=== PATIENT | female | born 1930 | race Caucasian/White ===

== ENCOUNTER 2018-04-30 06:39 | Day surgery (SDC) | payer MEDICARE, BC ==
[2018-04-30] MEDS ORDERED: Dextrose 5%-Lactated Ringers 1,000 ML IV SCH (07:15)
[2018-04-30] MEDS ORDERED: Propofol 200 MG/20 ML SDV ONE (07:17)
[2018-04-30] MEDS ORDERED: Midazolam 1 MG/ML 2 ML SDV ONE (07:17)
[2018-04-30] MEDS ORDERED: fentaNYL 100 MCG/2 ML SDV ONE (07:17)
[2018-04-30] MEDS ORDERED: Atropine 0.4 MG/ML SDV ONE (11:05)
[2018-04-30 12:58] VITALS: BP 138/83
--- NOTE | 2018-05-07 12:32 | OR ---
DATE OF PROCEDURE: 04/30/2018 PREOPERATIVE DIAGNOSIS: Iron-deficiency anemia. POSTOPERATIVE DIAGNOSIS: Iron-deficiency anemia associated with normal upper and lower GI endoscopies. OPERATIVE PROCEDURE: 1. Esophagogastroduodenoscopy with biopsies of antrum for CLOtest. 2. Flexible colonoscopy. ANESTHESIA: IV sedation. INDICATION FOR PROCEDURE: This is an 87-year-old presenting with an iron-deficiency anemia pattern. The labs were rechecked today. She did have some persistently low hemoglobin of 9.6 as well as low MCV, MCH, and MCHC. Of note, her ferritin level today was 37, vitamin B12 was 1221, and folate was greater than 20. Plan is to proceed with an upper and lower endoscopy with biopsies and/or polypectomy as indicated. Potential risks including bleeding and perforation were discussed, and the patient wishes to proceed. DETAILS OF PROCEDURE: The patient was taken to the operating room and placed in a left lateral decubitus position. IV sedation was administered, after which the upper GI endoscope was passed orally through the length of the esophagus into the stomach with retroflexion view of the fundus and thereafter through the pyloric channel and into the junction of the third and fourth portions of the duodenum. Findings were overall entirely normal. There was no evidence of inflammation of hypopharynx, larynx, upper esophageal sphincter, or esophageal body. At the EG junction, no significant hiatal hernia or inflammation was present. Likewise, within the stomach, there were no significant areas of inflammation. The pyloric channel and the visualized portion of the duodenum were unremarkable. There was no evidence of any tumor effect at the level of the ampulla of Vater. Biopsies were then obtained from the antrum to establish the patient's H. pylori status and findings of CLOtest. Minimal bleeding from the biopsy site was seen and the gastroscope then removed. Attention was taken to the colonoscopy. Initial digital rectal exam was performed and was unremarkable. The colonoscope was then passed into the rectum with retroflexion revealing some uncomplicated hemorrhoidal columns. The scope was eventually passed to the level of the cecum. The prep was fairly good. There was some liquid stool present, but no significant pathology would likely have been missed. Overall, the colonoscopic examination was entirely normal. No blood or bleeding or areas of diverticular disease. No polyps or signs of neoplasia and no areas of colitis. The scope was then withdrawn, the above findings reconfirmed, and the procedure then concluded. The patient was taken to the recovery room in satisfactory condition. The patient will be following up with Dr. Diane in the clinic over the next couple of weeks. If there is still a suspicion of GI tract blood loss, one might consider a capsule enteroscopy via [facility]. Casper Spencer MD /[id number]
== END 2018-04-30 13:35 | disposition home or self-care (01) ==
LOC: JP.SDS 06:39
PROVIDERS: ATTEND Surgery
DX: D50.9 Iron deficiency anemia, unspecified (principal); K64.9 Unspecified hemorrhoids
CPT/HCPCS: 36415; 43239; 45378; 82607; 82728; 82746; 85027; 87081; J0461; J2250; J2704; J3010; J7042